=== PATIENT | female | born 1995 | race Caucasian/White ===

== ENCOUNTER 2020-03-01 10:03 | Emergency (ER) | payer OTHER, SELFPAY ==
[2020-03-01 10:15] VITALS: BP 124/74; PULSE 71; RESP 20; TEMP 37.1; O2SAT 100
--- NOTE | 2020-03-01 10:15 | ED.GENADULT ---
HPI - General Adult General Chief complaint: Wound/Laceration Stated complaint: ingrown toe nail Time Seen by Provider: 03/01/20 10:16 Source: patient and RN notes reviewed Mode of arrival: ambulatory Limitations: no limitations History of Present Illness HPI narrative: This is a 24 years old female presents to the office for an evaluation of ingrowing toenails pain for over a week. Pain is worse when she walks on it. She has tried epsom salt socking and tea tree oil for her symptoms with minimal changes. She noticed last night that there was pustular discharge from her right great toe. Denies injury/trauma. She is here visiting family and will stay for another two week before she returns to [facility]. Related Data Home Medications Medication Instructions Recorded Confirmed No Home Medications 03/01/20 03/01/20 Allergies Allergy/AdvReac Type Severity Reaction Status Date / Time No Known Allergies Allergy Verified 03/01/20 10:16 Review of Systems Review of Systems: Narrative: CONSTITUTIONAL: Denies fever, chills CARDIOVASCULAR: Denies chest pain, palpitation RESPIRATORY: Denies dyspnea, wheezing, cough GASTROINTESTINAL: Denies abdominal pain, nausea, vomiting, diarrhea. SKIN: Denies rash MUSCULOSKELETAL: Reports bilateral great toes pain. NEUROLOGIC: Denies lightheaded All other systems reviewed are negative, except as documented in HPI. PMFSH Social History Social History Gender identity (if verbalized by the patient): Female Comments At time of signature, I agree with nursing past medical, surgical, social and family history. There is no relevant family history pertinent to the presenting complaint. Exam Narrative: Exam Narrative: GENERAL: This is a well-nourished, well-developed patient, in no apparent distress. CARDIOVASCULAR: Regular rate and rhythm without murmurs, gallops, or rubs. RESPIRATORY: Clear to auscultation. Breath sounds equal bilaterally. No wheezes, rales, or rhonchi. GASTROINTESTINAL: Abdomen soft, non-tender, nondistended. Bowel sounds are active. No hepato-splenomegaly, or palpable masses. No guarding. SKIN: left great toe noted slight erythema and edematous on tibia aspect of nailfold, right great toe noted tender, edematous and erythema fibular aspect of nailfold. No obvious pus pocket; so no incision is needed. NEURO: awake, alert, and oriented to person, place and time. There were no obvious focal neurologic abnormalities. Steady gait EXTREMITIES: Normal range of motion. Amelia Coma Scale Eye Opening: Spontaneous 4 Amelia Coma Scale Motor: Obeys Commands 6 [place] Coma Scale Verbal: Oriented 5 Course Vital Signs Vital signs: Vital Signs Temperature 98.7 F 03/01/20 10:15 Pulse Rate 71 03/01/20 10:15 Respiratory Rate 03/01/20 10:15 Blood Pressure 124/74 03/01/20 10:15 Pulse Oximetry 100 03/01/20 10:15 Temperature 98.7 F 03/01/20 10:15 Pulse Rate 71 03/01/20 10:15 Respiratory Rate 03/01/20 10:15 Blood Pressure 124/74 03/01/20 10:15 Pulse Oximetry 100 03/01/20 10:15 Medical Decision Making MDM Narrative Medical decision making narrative: Discharge instructions reviewed with patient, as well as provided in writing per nursing staff. The instructions also include specific and strict return/GO TO THE ER as well as f/u information. All questions have been answered, and the patient deny any further questions with discharge and discharge plan. Differential Diagnosis Differential Diagnosis: insect bite, paronychia, cellulitis, tinea Vital Signs Vital Signs: Vital Signs Temperature 98.7 F 03/01/20 10:15 Pulse Rate 03/01/20 10:15 Respiratory Rate 03/01/20 10:15 Blood Pressure 124/74 03/01/20 10:15 Pulse Oximetry 100 03/01/20 10:15 Temperature 98.7 F 03/01/20 10:15 Pulse Rate 03/01/20 10:15 Respiratory Rate 03/01/20 10:15 Blood Pre
== END 2020-03-01 10:33 | disposition home or self-care (01) ==
PROVIDERS: Emergency Provider Nurse Practitioner
DX: L03.032 Cellulitis of left toe (principal); L60.0 Ingrowing nail
CPT/HCPCS: 99203; G0463

== ENCOUNTER → 2022-11-18 08:37 | Outpatient (CLI) | payer BC, SELFPAY ==
--- NOTE | ~2022-11-18 | US_ITS ---
EXAMINATION: US OB /maternal detail DATE: 11/18/2022 09:24 INDICATION: Encounter for screening, unspecified. TECHNIQUE: Real-time ultrasound of the pelvis was performed. COMPARISON: None. FINDINGS: There is a single living fetus in breech presentation. The placenta is anterior, 5.2 cm from the cer vix. heart rate is 145 beats per minute (bpm). The amniotic fluid volume is subjectively normal . The cervical length is 3.6 cm on transabdominal images, which is normal. The following biometric data were obtained: Biparietal diameter (BPD): 4.8 cm; head circumference (HC): 17.6 cm; abdominal circumference (AC): 14 .7 cm; femur length (FL): 3.1 cm. These measurements are concordant. Estimated weight is 317 g +/- 48 g, which correlates with the 37th percentile when 04/07/23 is u sed as estimated date of delivery. As single measurements, these parameters are each equal to the following estimated gestational ages: BPD: 20 weeks 3 days. HC: 20 weeks 1 days. AC: 20 weeks 0 days. FL: 19 weeks 4 days. estimated gestational age based solely on measurements from this exam is 20 weeks 0 days +/- 1 weeks 3 days. The cerebral ventricles, cerebellum, cisterna magna, nuchal fold, and visualized portions of the spin e are normal. The heart is normal. The diaphragm, stomach, kidneys, and bladder are normal. There are two umbilical arteries to yield a 3-vessel cord. The cord insertion is normal. IMPRESSION: 1. Single living fetus in breech presentation. 2. Estimated weight is 317 g +/- 48 g, which correlates with the 37th percentile when 04/07/23 is used as estimated date of delivery. 3. Normal anatomic survey. Reviewed, dictated and finalized at location A. IMPRESSION: 1. Single living fetus in breech presentation. 2. Estimated weight is 317 g +/- 48 g, which correlates with the 37th pe rcentile when 04/07/23 is used as estimated date of delivery. 3. Normal anatomic survey.
== END ==
PROVIDERS: PCP Obstetrics & Gynecology Gynecologic Oncology; Visit Provider Obstetrics & Gynecology Gynecologic Oncology
DX: Z34.92 Encounter for supervision of normal pregnancy, unspecified, second trimester (principal); Z3A.20 20 weeks gestation of pregnancy
CPT/HCPCS: 76805

== ENCOUNTER 2025-05-11 07:27 | Outpatient (CLI) | payer BC, SELFPAY ==
--- OUTSIDE RECORDS SUMMARY | 2025-05-11 07:34 | XMS_ITS | Encounter Summary ---
Author Organization [facility] Address [address] [place] [id number] Care Team Providers Care Rail Detector Car Operator Name Role Phone Srinivasa Iliana Ye [facility] Primary Care Provider Toshia Vega [facility] Primary Care Provid er Encounter Details Date Type Department Care Team (Late st Contact Info) Description 08/30/[address] [facility] [address] [place] [phone] Parisa Louis, [facility] [address] [facility], [address] [place] [address] Question regarding URINALYSIS Social History Tobacco Use Types Packs/Day Years Used Date Smoking Tobacco: Never Smokeless Tobacco: Never Alcohol Use Standard Drinks/Week Comments Yes 0 (1 standard drink = 0.6 oz pur e alcohol) ocassionally PHQ-2 Answer Date Recorded Patient Health Questionnaire-2 Score 0 08/14/2022 Comments No Sex and Gender Information Value Date Recorded Sex Assigned at Not on file Legal Sex Female 3:29 PM CDT Gender Identity Not on file Sexual Orientation Not on file COVID-19 Exposure Response Date Recorded In the last 10 days, have yo u been in contact with someone who was confirmed or suspected to have Coronavirus/COVID-19? No / Unsure 08/30/2022 9:18 AM INSURANCE UNDERWRITING ASSISTANT documented as of this encounter Plan of Treatment Not on file documented as of this encounter Visit Diagnoses Not on filedocumented in this encounter Additional Health Concerns Infection Onset Date Last Indicated Resolved Time COVID-19 Rule Out 11/07/2023 11/07/2023 11/07/2023 10:21 AM CDT Assessment Noted Time PHQ-9 Depression Total Score: 0 10/04/19 3:20 PM CDT documented as of this encounter Care Teams Rail Detector Car Operator Relationship Specialty Start Date End Date Iliana Bernabe, CRUCIBLE FURNACE TENDER- PCP - General Nurse Practitioner Family 06/21/22 3 Toshia Akers, [facility]- [address] [place] [address] PCP - General Nurse Practitioner Family 02/02/23 documented as of this encounter
--- OUTSIDE RECORDS SUMMARY | 2025-05-11 07:34 | XMS_ITS | Encounter Summary ---
Author Organization [facility] Address [address] [place] [address] Care Team Providers Care Folding Machine Operator Name Role Phone Iliana Bernabe PARANORMAL INVESTIGATOR- Primary Care Provider Toshia Vega PARANORMAL INVESTIGATOR-BC Primary Care Provid er Encounter Details Date Type Department Care Team (Latest Contact Info) Description 08/14/2022 Troppin Message [address] [phone] Iliana Bernabe, PARANORMAL INVESTIGATOR-BC Question regarding CHORIONIC GONADOTROPIN HCG SERUM Social History Tobacco Use Types Packs/Day Years [...] suspected to have Coronavirus/COVID-19? No / Unsure 08/14/2022 7:08 AM ANATOMY TEACHER documented as of this encounter Functional Status * Over the past 2 weeks, how often have you been bothered by any of the following problems? Question Answer Date of Assessment Author Status Little interest or pleasure in doing things Not at all 08/14/2022 10:49 AM ANATOMY TEACHER Mensing, Fadia Bradley RN Act jude Feeling down, depressed, or hopeless Not at all 08/14/2022 10:49 AM ANATOMY TEACHER Fadia Myers RN Active Patient Health Questionnaire-2 Score 0 08/14/2022 10:49 AM ANATOMY TEACHER Fadia Myers RN Active documented as of this encounter Plan of Treatment Not on file documented as of this encounter Visit Diagnoses Not on filedocumented in this encounter Additional Health Concerns Infection Onset Date Last Indicated Resolved Time COVID-19 Rule Out 11/07/2023 11/07/2023 11/07/2023 10:21 AM CDT Assessment Noted Time PHQ-9 Depression Total Score: 0 10/04/19 3:20 PM CDT documented as of this encounter Care Teams Folding Machine Operator Relationship Specialty Start Date End Date Iliana Bernabe PARANORMAL INVESTIGATOR- PCP - General Nurse Practitioner Family 06/21/22 3 Toshia Akers PARANORMAL INVESTIGATOR- [address] [place] [address] PCP - General Nurse Practitioner Family 02/02/23 documented as of this encounter
--- OUTSIDE RECORDS SUMMARY | 2025-05-11 07:34 | XMS_ITS | Clinical Summary ---
Author Organization [facility] Address [facility] [place] [address] Care Team Providers Care Workforce Development Assistant Name Role Phone Delphine Toshia [facility] Primary Care Provid er Allergies No known active allergies Medications vitamin (VINATE M) 27-1 MG Tab tablet Take 1 tablet by mouth daily. Active fluticasone propionate (FLONASE) 50 MCG/ACT nasal spray Active Magnesium Glycinate 100 MG Cap 01/13/2023 Active cetirizine (ZYRTEC) 5 MG tablet Take 1 tablet (5 mg total) by mouth daily. Active phentermine (ADIPEX-P) 37.5 MG capsule 12/26/2023 Active Active Problems Problem Noted Date Diagnosed Date Allergic rhinitis, unspecified 11/07/2023 Closed fracture of fourth metatarsal bone 2023 Overview (11/07/2023): HEALED BUCKLE FRACTURE Exercise-induced bronchospasm 11/07/2023 Perioral dermatitis 11/07/2023 Uses oral contraceptives 11/07/2023 Closed fracture of second metatarsal bone 2023 Overview (11/07/2023): HEALED BUCKLE FRACTURE Closed fracture of third metatarsal bone 024 Overview (11/07/2023): HEALED BUCKLE FRACTURE 04/02/2023 macrosomia affecting management of mother, antepartum 04/02/2023 Immunizations Immunization Administration Dates Next Due DTaP/Hib (TriHIbit) 10/13/1996 Dtp (Generic) 02/20/2001 Dtp/Hib (Tetramune) 1995,1995,1995 HPV4 (Gardasil) 05/31/2011,10/13/2010,06/29/2010 Hepatitis B Pediatric 1995,1995,12/0 07/1994 Influenza (Generic) 06/29/2010 Influenza Adult (Generic) 07/23/2019,08/03/2016 MMR (MMRII) 02/22/2001,10/13/1996 Polio IPV (Ipol) 02/22/2001 Polio Opv (Generic) 1995,1995,1995 Varicella (Varivax) 02/22/2001 Family History Medical History Relation Comments Cancer Father Cancer Maternal Grandmother Diabetes Mother Pre diabetic Thyroid Mother Heart Disease Paternal Grandfather Hypertension Paternal Grandfather Heart Disease Paternal Grandmother Relation Status Comments Father Maternal Grandmother Mother Paternal Grandfather Paternal Grandmother Social History Tobacco Use Types Packs/Day Years Used Date Smoking Tobacco: Never Passive Smoke Exposure: Never Smokeless Tobacco: Never Tobacco Cessation:Counseling Given: Yes Alcohol Use Standard Drinks/Week Comments Not Currently 0 (1 standard drink = 0.6 oz pur e alcohol) ocassionally PHQ-2 Answer Date Recorded Patient Health Questionnaire-2 Score 0 11/25/2024 Comments No Sex and Gender Information Value Date Recorded Sex Assigned at Not on file Legal Sex Female 3:29 PM CDT Gender Identity Not on file Sexual Orientation Not on file Last Filed Vital Signs Vital Sign Reading Time Taken Comments Blood Pressure 103/65 11/25/2024 2:52 PM CDT Pulse 83 11/25/2024 2:52 PM CDT Temperature 37.2 C (98.9 F) 11/25/2024 2:52 PM CDT Respiratory Rate 20 11/25/2024 2:52 PM CDT Oxygen Saturation 98% 11/25/2024 2:52 PM CDT Inhaled Oxygen Concentration - - Weight 75.3 kg (166 lb) 11/25/2024 2:52 PM CDT Height 158.8 cm (5' 2.5) 11/25/2024 2:52 PM CDT Body Mass Index 29.88 11/25/2024 2:52 PM CDT Plan of Treatment Health Maintenance Due Date Last Done Comments Cervical Cancer Screening Pap Smear (Age 21 to 29) Every 3 Years 1995 Cervical Cancer Screening 1995 Annual Physical 08/14/2023 08/14/2022 COVID-19 Vaccine ( season) 2025 02/19/2021, 07/16/2020 Influenza Adult (#1) 2025 07/16/2022, 07/23/2019, 08/03/2016, Additional history exists DTaP, Tdap and Td Vaccines (4 - Td or Tdap) 07/16/2032 07/16/2022, 02/20/2001, 10/13/1996, Additional history exists Hepatitis B Vaccines Completed 1995, 1995, 1995 HPV Vaccines Completed 05/31/2011, 09/15, 06/29/2010, Additional history exists PHQ-2 (Physician [place]) Completed 11/25/2024 Hepatitis C Completed 12/19/2024, 08/30/2022 Hepatitis A Vaccines Aged Out No long er eligible based on patient's age to complete this topic Meningococcal B Vaccine Aged Out No l onger eligible based on patient's age to complete this topic Meningococcal Vaccine Aged Out No rosa joy eligible based on patient's age to complete this topic Pneumococcal Vaccine: Pediatrics (0 to 5 Years) and At-Risk Patients (6 to 49 Years) Aged Out No longer eligible based on patient's age to complete this topic RSV Immunizations Under 20 Months Aged Out No longer eligible based on patient's age to complete this topic Procedures Procedure Name Priority Date/Time Associated Diagnosis Comments HEPATITIS C ANTIBODY Routine 12/19/2024 1:11 PM CDT Encounter for screening of mother ([facility]) from Last 3 Months or Most Recently Relevant to Health Maintenance Results * HEPATITIS C ANTIBODY (12/19/2024 1:11 PM CDT) HEPATITIS C AB NON-REACTI VE NON-REACTI VE 12/19/2024 9:21 PM CDT [facility] 12/19/2024 1:11 PM CDT Erlinda Herrmann MD LABORATORY Final Result [facility] [address] [place] [address], [place] [phone] from Last 3 Months or Most Recently Relevant to Health Maintenance Insurance [facility] Advance Directives * Full Code (Latest Code Status on File) Date Activated Date Inactivated Comments 04/02/2023 2:02 PM 04/05/2023 6:29 PM Care Teams Workforce Development Assistant Relationship Specialty Start Date End Date Toshia Akers FNP-AYESHA [address] [place] [address] PCP - General Nurse Practitioner Family 02/02/23
--- OUTSIDE RECORDS SUMMARY | 2025-05-11 07:34 | XMS_ITS | Data Portability ---
Author Organization [facility], [id number] [facility] Address [address] [place] [address] Assessment Encounter Date Assessment Date Assessment LastModified by Organization Details LastModified Time 09/08/2024 09/08/2024 - discussed routine well woman care [email or web address] Not available 09/06/2024 13:11:16 12/11/2024 12/11/2024 NOB's in 1-2w bgelly Not available 12/11/2024 14:13:38 Plan of Treatment Reminders Order Date Submit Date Provider Last Modified By Organization Details Last Modified Time Details Appointments None recorded. Lab CT + NG + TV, DNA, urine/swab 2024 025 [place] [facility] ([facility]), [address], [place], [address], 21:06:00 Referral None recorded. Procedures None recorded. Surgeries None recorded. Imaging None recorded. Medication Orders ondansetron 4 mg disintegrat ing tablet 2024 025 [facility] 435, [address], [address], 09:08:43 albuterol sulfate HFA 90 mcg/actuati on aerosol inhaler 2024 025 [facility] 435, [address], [address], 14:14:02 metoclopram inderjit 10 mg tablet 2024 025 [facility], [address] [facility] [address], [place], [address], 14:14:03 Patient TargetsNo targets recorded. Patient Instructions Encounter Date Encounter Id Patient Instructions Last Modified By Organization Details Last Modified Time 12/26/2024 [id number] non-invasive testing information bgelly Not available 12/26/2024 08:56:52 substance use an d : care instructions bgelly Not available 12/26/2024 08:56:52 Reason for Referral None Reported. Results Created Date Observation Date Name Description Value Unit Range Abnormal Flag Note LastModifiedBy Organization Detail LastModifiedTime 12/12/1912/12/2024 CHLAM YDIA, GONOR RHOEA E, AND TRICH OMONA S trichomonas vaginalis, aptima (panther) NOT DETECT ED normal DNA testi ng perfo rmed by [employer] valentin Ampli ficat ion (TMA) . Resul ts shoul d be inter prete d in conju nctio n with patie nt histo ry and clini broderick prese ntati on. This assay is highl y accur ate, but rare false posit jude and negat jude resul ts may occur . Posit jude resul ts in low preva lence popul ation s may requi re re-ev aluat ion. A negat jude resul t does not precl ude a possi ble infec tion due to a speci men inade quacy or sampl ing error . Test perfo rmed by [facility], [address], [place] [address] , Tiffany Rascon ra, DO, Labor atory [place], CLIA# [id number] Not Available [facility] ([facility]) [address], [place], [address], 12/14/2024 21:06:00 12/12/19 25 12/12/2024 CHLAM YDIA, GONOR RHOEA E, AND TRICH OMONA S neisseria gonorrhoeae, aptima NOT DETECT ED normal DNA testi ng perfo rmed by [employer] valentin Ampli ficat ion (TMA) . Resul ts shoul d be inter prete d in conju nctio n with patie nt histo ry and clini broderick prese ntati on. This assay is highl y accur ate, but rare false posit jude and negat jude resul ts may occur . Posit jude resul ts in low preva lence popul ation s may requi re re-ev aluat ion. A negat jude resul t does not precl ude a possi ble infec tion due to a speci men inade quacy or sampl ing error . Test perfo rmed by [employer] [employer] d/b/a [facility], [address], [place] [address] , Tiffany Rascon ra, DO, Labor atory [facility], IA# [id number] Not Available [facility] ([facility]) [address], [place], [address], 12/14/2024 21:06:00 12/12/19 25 12/12/2024 CHLAM YDIA, GONOR RHOEA E, AND TRICH OMONA S chlamydia trachomatis, aptima NOT DETECT ED normal DNA testi ng perfo rmed by [employer] valentin Ampli ficat ion (TMA) . Resul ts shoul d be inter prete d in conju nctio n with patie nt histo ry and clini broderick prese ntati on. This assay is highl y accur ate, but rare false posit jude and negat jude resul ts may occur . Posit jude resul ts in low preva lence popul ation s may requi re re-ev aluat ion. A negat jude resul t does not precl ude a possi ble infec tion due to a speci men inade quacy or sampl ing error . Test perfo rmed by [facility], [address], [place] [address] , Tiffany Rascon ra, DO, Labor atory [place], CLIA# [id number] Not Available [facility] ([facility]) [address], [place], [address], 12/14/2024 21:06:00 Result Notes None recorded. Problems Name Problem SNOMED Code Status Onset Date Resolution Date Notes Provider Name and Address Organization Details Recorded Time Asthma 307482854 Active 2024 Diana johnson, [place] - [facility] 5 13:13:26 Obesity 787421458 Active 2024 NALINI TORRES [address] [facility] [address], [place], [address], [facility] 5 16:09:40 97563352 Completed 202404/03/2025 Velia Lopez null, [place] - [facility] 5 16:00:26 Wheezing 57906755 Active 2024 SEE PARTIDA MD [address], [place], [address], [facility] 5 14:10:41 Nausea and vomiting in Active 2024 SEE PARTIDA MD [address] [facility] [address], [place], [address], [facility] 5 09:02:18 Low back pain 153778986 Active 2024 Ulises johnson, [place] - [facility] 5 08:55:57 Nausea and vomiting in Completed 2024 SEE PARTIDA MD [address], [place], [address], [facility] 5 09:02:18 Past history of section 037328333 Active 2024 10#13 planned CS 03/2023. TRINA bailey @NOB. SEE PARTIDA MD [address], [place], [address], [facility] 5 09:02:11 Past history of section 486083266 Completed 2024 10#13 planned CS 03/2023. TRINA bailey @NOB. SEE PARTIDA MD [address], [place], [address], [facility] 5 09:02:11 Problem Notes None recorded. Procedures Surgical History Date Name Laterality Status Provider Name and Address Organization Details Recorded Time 12/27/19 25 U/S OB [facility] ([facility]) completed SEE PARTIDA MD [address], [place], [address], [facility] 12/26/2024 09:05:17 12/12/19 25 U/S OB FIRST TRIMESTER ([facility]) completed SEE PARTIDA MD [address] [facility] [address], [place], [address], [facility] 12/11/2024 14:09:47 07/16/19 24 excision of lipoma completed Diana Power [facility] 09/08/2024 15:48:05 04/02/20 23 section completed Diana Power [facility] 09/06/2024 13:15:55 08/25/19 23 Date of Last Pap Smear completed Diana Power [facility] 09/06/2024 13:14:01 07/16/19 00 tonsillectomy completed Diana Power [facility] 09/06/2024 13:16:10 section completed Not Available [facility] 11/13/2024 14:29:31 tonsillectomy completed Not Available [facility] 11/13/2024 14:29:31 Caesarean Section completed Lorna Butler [facility] 12/11/2024 13:47:32 Imaging Results None recorded. Procedure Notes None recorded. Medical Equipment None Reported. Allergies Allergen ID Allergen Name Allergen Category Reaction Reaction Severity Criticality Documentation Date Start Date Code Code System Note Provider Name and Address Organization Details Recorded Time 135671 tree and shrub pollen environme nt,medica tion Not available Not available Not available 09/06/2024 Diana johnson [facility] 13:11:52 Medications Name Sig Start Date Stop Date Status Note LastModified by Organization Details LastModified Time doxycycline hyclate 100 mg capsule TAKE 1 CAPSULE BY MOUTH TWICE DAILY FOR 7 DAYS . TAKE WITH A FULL GLASS OF WATER AND FOOD. DO NOT LIE DOWN FOR 1 HOUR AFTER TAKING. 09/08 completed Not Available Not Available Not Available Claritin 10 mg tablet Take 1 tablet every day by oral route. active Not Available Not Available No t Available Pepcid 20 mg tablet Take 1 tablet twice a day by oral route. active Not Available Not Available No t Available albuterol sulfate HFA 90 mcg/actuati on aerosol inhaler INHALE 2 PUFFS BY MOUTH EVERY 4 HOURS NEEDED 01/20 completed Not Available Not Available Not Available ondansetron 4 mg disintegrat ing tablet DISSOLVE 2 TABLETS IN MOUTH TWICE DAILY active Not Available Not Available No t Available phentermine 37.5 mg capsule TAKE 1 CAPSULE BY MOUTH ONCE DAILY 09/08 completed Not Available Not Available Not Available metoclopram inderjit 10 mg tablet TAKE 1 TABLET BY MOUTH 4 TIMES DAILY NEEDED 01/20 completed Not Available Not Available Not Available amoxicillin 875 mg-potassiu m clavulanate 125 mg tablet TAKE 1 TABLET BY MOUTH TWICE DAILY FOR 10 DAYS 09/08 completed Not Available Not Available Not Available magnesium 01/20 completed Not Available Not Available Not Available Vitamin active Not Available Not Available Not Available Vitamin B6 01/20 completed Not Available Not Available Not Available Vitals Date Recorded Body height Body mass index (BMI) Body weight Systolic And Diastolic Provider Name and Address Organization Details Last Updated DateTime 09/08/2024 158.75 cm 30.6 kg/m2 40445.42 g 110/62 mm[Hg] Diana Power [facility] 09/08/2024 15:44:38 Date Recorded Body height Body mass index (BMI) Body weight Systolic And Diastolic Provider Name and Address Organization Details Last Updated DateTime 12/11/2024 158.75 cm 29.7 kg/m2 32038.74 g 102/60 mm[Hg] Lorna Butler [facility] 12/11/2024 13:58:04 Date Recorded Body weight Body mass index (BMI) Body height Systolic And Diastolic Provider Name and Address Organization Details Last Updated DateTime 12/26/2024 48089.741 05 g 29.7 kg/m2 158.75 cm 122/60 mm[Hg] Ulises Alisson [facility] 12/26/2024 08:54:03 Date Recorded Body height Body mass index (BMI) Body weight Systolic And Diastolic Provider Name and Address Organization Details Last Updated DateTime 01/23/2025 158.75 cm 30.4 kg/m2 64230.11 g 106/66 mm[Hg] Yvonne Camarillo [facility] 01/23/2025 16:34:47 Social History Question Answer Notes LastModified by Organizat ion Details LastModified Time Tobacco Smoking Status Never Smoker Diana Power [facility] 09/08/2024 15:44:58 Do You Have An Advance Directive? No Information not available 09/08/2024 If You Are , What Was Your Level Of Alcohol Consumption Prior To ? Occasional Information not available 09/08/2024 How Many Years Have You Consumed Alcohol? 9 [email or web address] Information not available 12/11/2024 What Is Your Level Of Caffeine Consumption? Moderate [email or web address] Information not available 01/23/2025 What Type Of Diet Are You Following? REGULAR Information not available 09/08/2024 What Is Your Relationship Status? Information not available 09/08/2024 Sex: Unknown Functional Status Question Answer Note LastModified by Organizat ion Details LastModified Time Do you use any illicit or recreational drugs? No Information not available 11/13/2024 What is your level of alcohol consumption? None [email or web address] Information not available 01/23/2025 Are you currently employed? 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 Moderate Note: - [employer]rees[employer] 01/31/2022 SocialHistoryQ uestion: 'Moderate Amount of Exercise (1-3 times weekly)'; Information not available 11/13/2024 Mental Status None recorded. Family History Relationship Description Onset Age of this Age Resolved Age Notes LastModified by Organization Details LastModified Time Mother Asthma bvoellinger Not availabl e 09/08/2024 15:44:57 Mother Hypothyroidi sm bvoellinger Not available 08/17 15:44:57 Mother High risk bvoellinger Not available 08/17 15:44:57 Mother Seizure disorder Seizur e Disord er [email or web address] Not available 01/23/2025 16:26:51 Mother History taken NOS Other Mother - PCOS [email or web address] Not available 01/23/2025 16:26:51 Father Heart disease bvoellinger Not available 08/17 15:44:57 Father Mixed hypercholest erolemia and hypertriglyc eridemia Elevat ed Choles terol/ Trigly ceride s - Phrees ia 2021 [email or web address] Not available 01/23/2025 16:26:51 Paternal Grandfather Mixed hypercholest erolemia and hypertriglyc eridemia Elevat ed Choles terol/ Trigly ceride s - Phrees ia 2021 [email or web address] Not available 01/23/2025 16:26:51 Unspecified Relation Family history taken Family Medica l Histor y Review ed [email or web address] Not available 01/23/2025 16:26:51 Maternal Grandmother Malignant neoplastic disease Cancer MGM-ly mphoma , Mother - pituit shasta tumor Not available 11/13/2024 15:24:57 Mother Malignant neoplastic disease Cancer MGM-ly mphoma , Mother - pituit shasta tumor Not available 11/13/2024 15:24:57 Mother Hypertensive disorder High Blood Pressu re Not available 11/13/2024 15:24:57 Father Hypertensive disorder High Blood Pressu re Not available 11/13/2024 15:24:57 Paternal Grandfather Hypertensive disorder High Blood Pressu re Not available 11/13/2024 15:24:57 Maternal Grandfather Heart disease Heart Diseas e Not available 11/13/2024 15:24:57 Medical History Condition Response ID-Other Y Cancer- Genetic screening Pulmonary- Asthma Y Gynecological History Statement/Question Response History of Fibroids N Flow Heavy Date of LMP 10/17/2024 Current Control Method: Withdrawal History of Recurrent Ovarian Cysts N HPV Vaccine Completed Date of Last HPV Test 08/25/2022 13 History of PCOS N History of Infertility Y History of Vulvar Dysplasia N History of Cervical Dysplasia N Duration of Flow (days) 5 Age at Menarche 13 Current Control Method History of Endometriosis N Frequency of Cycle (Q days) 30 Sexually Active? Y History of Dysmenorrhea N Menses Monthly N Date of Last Pap Smear 08/25/2022 Sexual Problems? N History of Sexually Transmitted Infectio n N Obstetrics History GPAL:G 2 P 1 0 0 1 Type Value Full Term 1 Living 1 Total 2 Immunizations Vaccine Type Date Status Note Provider Nam e and Address Organization Details Recorded Time SARS-COV-2 (COVID-19) vaccine, UNSPECIFIED 07/16/2020 completed Diana johnson, [place] - [facility] 09/06/2024 13:12:13 influenza, unspecified formulation 07/16/2022 completed Diana john[place], [place] [facility] 09/06/2024 13:12:31 Tdap 07/16/2022 completed Diana john[place] [facility] 09/06/2024 13:12:43 HPV, unspecified formulation 07/16/2004 completed Diana johnson [place] - [facility] 09/06/2024 13:13:14 Past Encounters Encounter ID Performer Location Encounter Start Date Encounter Closed Date Diagnosis/Indication Diagnosis SNOMED-CT Code Diagnosis ICD10 Code Diagnosis IMO Codes Diagnosis Note [id number] NALINI DAVID MELISSA [id number] [address] [place] [address] 09/08/2024 15:33:47 09/08/2024 16:10:35 Gynecologic examination 83337834 Z01.419 -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 Depression screening 171 366984 Z13.31 -score 1 Obesity 744838819 E66.9 [id number] SEE PARTIDA MD [id number] [address] [place] [address] 12/11/2024 13:46:39 12/11/2024 14:20:42 screening 335422600 Z36.9 Nausea and vomiting in 6963278028 O21.9 [id number] [facility] 40831399 R06.2 71142 [id number] SEE PARTIDA MD [id number] [address] [place] [address] 12/26/2024 08:43:04 12/26/2024 09:09:34 Amenorrhea 21351581 N91.0 Depression screening 171 137913 Z13.31 Finding of 290 731847 Z39.1 827611 Low back pain 152959146 M54.59 [id number] Past pregn myah history of section 383972639 Z98.818 [id number] TOLAC ho provided Nausea and vomiting in 5102933842 O21.9 127040 [id number] BARBARA BONILLAROBERT DEVI DO [id number] [address] [place] [address] 01/23/2025 16:26:50 01/23/2025 17:29:30 Past history of section 835426833 Z98.953 3943740 care status 24 0437288 Z34.81 [id number] Health Concerns Section Related Observation LastModified by Organization Detai ls LastModified Time None Recorded Concern Status LastModified by Organization Details LastModified Time None Recorded Advance Directives Directive N: Payers Insurance Date Sequence Insurance Name Policy Number Policy Sullivan Covered Member ID Sullivan Member ID Guarantor Name 02/14/2025 1 [place] [id number] Vidya Weston [id number] Vidya Weston Notes Date Note Type Note Provider Name and Address Organization Details Recorded Time 09/08/2024 text/html Patient presents for ANNUAL EXAM This is an established patient Interval history/concerns/is sues: none Menstrual - Concerns: no - Timing: regular - Duration: 5 days - Flow: heavy - Cramps: none - Other: Sexual - Active: yes, male - Current number of partners: 1 - Number of parters in the past year: - Desires STI testing no Contraception - Method: withdrawal - Concerns: none Discharge: no Pelvic pain: no Other: does not want anything for contraceptive at this time-states it caused her to have trouble getting in the past and would like to have another child in the future. -ewa TORRES [address], [place], [address], [facility] 09/08/2024 16:10:28 12/11/2024 text/html Patient is here for debilitating nausea, and being light headed. Patient also states she is getting feelings like it is hard to breathe and having a heavy chest, patient states she is not getting any sleep at night. exercise induced asthma in HS and used inhaler. symptom similar, but was w exertion in HS and now is at rest. discussed allergens in air. no bleeding or pain. fatigue. 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 Menstrual cycles are regular and occur approximately every 30 days, with LMP of 10/17/2024. Based on LMP estimated gestational age is wks and days. Ultrasound performed today. Ultrasound if performed, showed estimated gestational age of wks and days. Final EDC determined to by based on . OB history is significant for the following swelling PMH: Hypertension: no Gestational diabetes: no Diabetes: no Rheumatologic disorder (e.g. Lupus): no Neurologic disorder: no Thyroid disease: no Infertility: no DVT/PE/APS: no She has been taking the following medications since her LMP: vitamin B6, PNV. She has not be exposed to any toxins, chemicals or radiation since her LMP. She did not require fertility treatment Since her LMP she has had the following symptoms including nausea, vomiting, headaches Infection History: Patient or partner has history of genital herpes No History of STD (GC, CT, HPV, syphilis, HIV) No History of LEEP, cervical conization, cervical laser ablation or cervical cryosurgery No Lives with someone with TB or TB exposed No Rash or viral illness since LMP No Have you received the flu vaccine this year no Have you received the COVID vaccine/booster this year no Other History There are not cats in the home. She has childhood varicella disease or chicken pox vaccine in the past. Have you ever received a blood transfusion No Will you approve a blood transfusion in case of an emergency yes [place] Screening Tool Do you feel unsafe in your relationship with your partner of with anyone in your environment? No Have you ever had difficulties in your life due to alcohol or drugs including prescription drugs? No Does your partner, your friends or anyone else close to you have any problems with alcohol or drug use? No Do either of your parents have a history of any problems with alcohol or drug use?No Since your LMP have your used alcohol or drugs? No Since your LMP have you smoked cigarettes, used tobacco products or vaped? No (If the patient answers YES to any of the above questions, additional screening and/or counseling might be appropriate) SEE PARTIDA MD [address], [place], [address], [facility] 12/26/2024 09:08:42 OBGyn Episode Ob Episode Information Episode Created Date Number of Fetuses Patient Bloodtype Patient rh Status Prepregnancy Weight lbs Domestic Partner Domestic Partner Phone Father Name Analog Design Engineer Status 12/12/19 25 1 CLOSED Fetus Data First Name Last Name Admitted to NICU Weight (g) Sex Living Outcome Pediatric Complications Fetus ID Race Codes Race Delivery Type [id number] Problems Problem Notes Problem Name Start Date End Date Resolution Snomed Code Not e Past history of section 12/26/[address] 10#13 [address] anned CS 03/2023. TOLAC ho @NOB. Nausea and vomiting in 12/26/2024 7264400730 Baldo Calculation Initial Baldo Date Initial Exam Date Initial Exam Provider Initial Ultrasound Date Last Menstrual Period Date Ultra Sound Weeks Gestation 08/01/2025 12/11/2024 12/11/2024 10/17/2024 6 Eighteen To Twenty Week Baldo Update Ultra Sound Date Fundal Height At Umbil Quickening Date Ultra Sound Latest Weeks Gestation Final Baldo Confirmed By Final Baldo Confirmed Date Final Baldo Date Ultra Sound Latest Days Gestation 0 0 Pre-mervat Flowsheet Flowsheet Date 12/11/2024 Alejandro Score Blood Edema Fundus Height Fundus Units Glucose Ketones Leukocytes Nitrite Labor Signs Protein Cervic Dilation Cervic Effacement Cervic Station none neg Type Weight in lbs Pre/Post Dialysis Refused Weight 165.525020324726 BP Diastolic BP Location Tested BP Systolic BP Type 60 102 Fetus Heart Rate Present Fetus Movement Comments pt is here for NOB problem v isit-CJ Flowsheet Date 12/26/2024 Alejandro Score Blood Edema Fundus Height Fundus Units Glucose Ketones Leukocytes Nitrite Labor Signs Protein Cervic Dilation Cervic Effacement Cervic Station none none none neg Type Weight in lbs Pre/Post Dialysis Refused 165.998765128656 BP Diastolic BP Location Tested BP Systolic BP Type 60 122 Fetus Heart Rate Present Fetus Movement A No Comments hx/rx rv;d nob visit see md note pt did labs last sunday already mw Flowsheet Date 01/23/2025 Alejandro Score Blood Edema Fundus Height Fundus Units Glucose Ketones Leukocytes Nitrite Labor Signs Protein Cervic Dilation Cervic Effacement Cervic Station none none neg Type Weight in lbs Pre/Post Dialysis Refused Weight 169.257188993183 BP Diastolic BP Location Tested BP Systolic BP Type 66 106 Fetus Heart Rate Present A Present Fetus Movement A No Comments RX/HX verified. BA No concer ns. Nausea is improving. Baby active on US. Appropriate interval growth. Menstrual History Last Menstrual Date Menses Monthly On Bcp Conception Prior Menses Frequency Hcg Plus Date Menarche Onset Age 0410/17/2024 Genetic Screening And Infection History Question Response Note Congenital Heart Defect false Miguel A Disease false Muscular Dystrophy false If Yes, Agent(s) And Strength/Dosage false Live With Someone With TB Or Exposed To TB false Sickle Cell Disease Or Trait () false Patient Or Partner Has Histo ry Of Genital Herpes false Rash Or Viral Illness Since Last Menstrual Period false Neural Tube Defect (Meningom yelocele, Spina Bifida, Or Anencephaly) false Óscar-Sachs (eg, Presybeterian, Cajun , Rwandan-Garvin) false Hemophilia Or Other Blood Disorders false History of HIV false History of Hepatitis false Any Other Genetic History false Thalassemia (Martiniquais, Sao Tomean, Mediterranean, Or Background): MCV < 80 false Down Syndrome false Cystic Fibrosis false History Of STD, Gonorrhea, C hlamydia, HPV, Syphilis false [place]'s Chorea false Mental Retardation/Autism true Cousin on FOB side w/mental retardation Intellectual Disability/Autism false If Yes, Was Person Tested For Fragile X? false Maternal Metabolic Disorder (eg, Type 1 Diabetes, PKU) false Hemoglobinopathy Or Carrier false Other Structural Defect false Recent Travel History Outside of Country false Patient's Age Will Be 35 Yea rs Or Older At Estimated Date of Delivery false Patient Or Baby's Father Had A Child With Defects Not Listed Above false Recurrent Loss, Or A Stillbirth false Other Infection History false Prior GBS-infected child false Other Inherited Genetic Or C hromosomal Disorder false Medications (including Suppl ements, Vitamins, Herbs, OTC Drugs), Illicit/Recreational Drugs, Alcohol false Delivery Information Delivery Date Delivery Type Labor Anesthesia Weeks Gestation Incision Type Labor Labor Length Hrs Delivered By Post Complications Tubal Sterilization Discharge Date Comments Discharge Information Feeding Method Contraceptive Method Maternal HG B and HCT Levels Ob Episode Information Episode Created Date Number of Fetuses Patient Bloodtype Patient rh Status Prepregnancy Weight lbs Domestic Partner Domestic Partner Phone Father Name Analog Design Engineer Status 09/06/19 25 1 CLOSED Fetus Data First Name Last Name Admitted to NICU Weight (g) Sex Living Outcome Pediatric Complications Fetus ID Race Codes Race Delivery Type [id number] Full Term [id number] Primary Baldo Calculation Initial Baldo Date Initial Exam Date Initial Exam Provider Initial Ultrasound Date Last Menstrual Period Date Ultra Sound Weeks Gestation 0 Eighteen To Twenty Week Baldo Update Ultra Sound Date Fundal Height At Umbil Quickening Date Ultra Sound Latest Weeks Gestation Final Baldo Confirmed By Final Baldo Confirmed Date Final Baldo Date Ultra Sound Latest Days Gestation 0 0 Menstrual History Last Menstrual Date Menses Monthly On Bcp Conception Prior Menses Frequency Hcg Plus Date Menarche Onset Age Delivery Information Delivery Date Delivery Type Labor Anesthesia Weeks Gestation Incision Type Labor Labor Length Hrs Delivered By Post Complications Tubal Sterilization Discharge Date Comments 3 Regional- idural 39 false RLA Discharge Information Feeding Method Contraceptive Method Maternal HG B and HCT Levels
--- OUTSIDE RECORDS SUMMARY | 2025-05-11 07:34 | XMS_ITS | Clinical Summary ---
Author Organization [facility] Address [address] [place] [address] Care Team Providers Care Laborer Tin Can Name Role Phone Unavailable Primary Care Provider Unavailabl e Source Comments [facility],non-owned Affiliates and Associated Physician Practices is amultiple site organization consisting of ambulatory clinics and hospital sitesin [place], [place], [place] and [place]. This disclosure is being madepursuant to the Care Everywhere program and may not contain all information available regarding this patient. Last updated 18.[facility] Allergies No known active allergies Encounters Date Type Department Care Team Description 04/10/2025 12:58 PM CDT - 04/10/2025 11:59 PM CDT Hospital Encounter [facility] [address] [place] [id number] Matilde Machado MD ADOPTION SERVICES MANAGER Discharge Disposition: Home or Self Care 03/13/2025 12:49 PM CDT - 03/13/2025 11:59 PM CDT Hospital Encounter [facility] [address] [place] [id number] Robb Delaney DO ADOPTION SERVICES MANAGER Discharge Disposition: Home or Self Care from Last 3 Months Social History Tobacco Use Types Packs/Day Years Used Date Smoking Tobacco: Never Assessed Estimated Date of Delivery Comme nts Yes 08/01/2025 Based on Ultraso und Sex and Gender Information Value Date Recorded Sex Assigned at Not on file Legal Sex Female 8:07 AM CDT Gender Identity Not on file Sexual Orientation Not on file Plan of Treatment Health Maintenance Due Date Last Done Comments HIV SCREENING 2010 DTAP/TDAP/TD VACCINES (1 - Tdap) 2014 HEPATITIS B VACCINE (1 of 3 - 19+ 3-dose series) 2014 PAP SMEAR 2016 HPV VACCINE (1 - 3-dose SCDM series) 2022 DEPRESSION SCREENING 07/16/2024 COVID-19 VACCINE (2 - 2024- season) 2025 02/19/2021 INFLUENZA VACCINE (#1) 2025 3, 07/23/2019, 08/03/2016, Additional history exists OB-ONE HOUR GLUCOSE 04/25/2025 OB-TDAP CURRENT 05/02/2025 OB-RHOGAM INJECTION 05/09/2025 Respiratory Syncytial Virus (RSV) Vaccine Pt: or over 60 yrs (1 - Risk 1-dose series) 06/06/2025 ZOSTER VACCINE (1 of 2) 2045 HEPATITIS C SCREENING Completed 12/19/2024 HIB VACCINE Aged Out No longer eligi ble based on patient's age to complete this topic MENINGOCOCCAL (Group B) VACCINE SHARED DECISION-MAKING Aged Out No longer eligible based on patient's age to complete this topic MENINGOCOCCAL GROUPS A/C/Y/W VACCINE Aged Out No longer eligible based on patient's age to complete this topic PNEUMOCOCCAL VACCINE Aged Out No long er eligible based on patient's age to complete this topic Procedures Procedure Name Priority Date/Time Associated Diagnosis Comments SONOGRAM - COMPLETE Routine 04/10/2025 1 :07 PM CDT Encounter for follow-up ultrasound of anatomy (HCC) 23 weeks gestation of (HCC) SONOGRAM - COMPLETE Routine 03/13/2025 1 2:50 PM CDT Encounter for anatomic survey (HCC) 19 weeks gestation of (HCC) from Last 3 Months Results * Sonogram - Complete (04/10/2025 1:07 PM CDT) Only the most recent of2 resultswithin the time period is included. Linked Results Indication ======== Incomplete anatomy Maternal obesity complicating , class 1 (BMI 30.0 - 34.9) History ====== OB History 2. Para 1 T1 1. live 2022. Gest. age 40 w + 0 d. Weight 4,904 g. Sex of child: male. Details: macrosomia, polyhydramnios, delivery Maternal Assessment Physical Exam Height 160 cm, 5 ft 3 in. Weight 85 kg, 187 lb. Initial weight 79 kg, 174 lb. BMI 33.13 kg/m . Initial BMI 30.82 kg/m . Weight gain 6 kg, 13 lb Method ====== Transabdominal ultrasound. View: Limited by position ========= López . Number of fetuses: 1 Dating ====== Date Details Gest. age CE Stated CE 23 w + 6 d 08/01/2025 Previous U/S 12/11/2024 GA, GA 6 w + 5 d 23 w + 6 d 08/01/2025 U/S 04/10/2025 based upon AC, BPD, Femur, HC 23 w + 5 d 08/02/2025 Assigned dating based on ultrasound (GA), selected on 03/13/2025 23 w + 6 d 08/01/2025 General Evaluation Cardiac activity present. FHR 142 bpm. Presentation: breech Placenta: Placental site: posterior Umbilical cord: Cord vessels: 3 vessel cord. Insertion site: normal insertion Amniotic fluid: Amount of AF: normal. MVP 7.1 cm Biometry BPD 56.1 mm 23w 1d 19% Hadlock HC 207.1 mm 22w 6d 6% Hadlock AC 194.2 mm 24w 1d 50% Hadlock Femur 44.0 mm 24w 3d 58% Hadlock Humerus 39.3 mm 24w 0d 43% Acosta HC / AC 1.07 Weight Calculation: EFW 657 g 51% Hadlock EFW (lb,oz) 1 lb 7 oz EFW by Hadlock (HGE-IS-UM-FL) appropriate Growth Overview Exam date GA BPD (mm) HC (mm) AC (mm) FL (mm) HL (mm) EFW (g) 03/13/2025 19w 6d 44.3 30% 167.8 24% 157.1 77% 32.1 48% 32.4 87% 346 71% 04/10/2025 23w 6d 56.1 19% 207.1 6% 194.2 50% 44 58% 39.3 43% 657 51% Anatomy The following structures appear normal: Abdomen Stomach. Kidneys. Bladder. Extremities / Skeleton Hands. The following structures were documented previously: Head / Neck Cranium. Lateral ventricles. Choroid plexus. Midline falx. Cavum septi pellucidi. Cerebellum. Cisterna magna. Thalami. Nuchal fold. Face Lips. Profile. Nose. Nasal bone. Orbits. Heart / Thorax 4-chamber view. RVOT view. LVOT view. 3-vessel view. 5-tlvzhe-fprjmbh view. Situs. Aortic arch view. Bicaval view. Ductal arch view. Great vessels. Right lung. Left lung. Diaphragm. Abdomen Cord insertion. Bowel. Genitals. Spine Cervical spine. Thoracic spine. Lumbar spine. Sacral spine. Extremities / Skeleton Arms. Legs. Feet. Impression ========= Single, live, intrauterine at 23w 6d. The size is appropriate. The amniotic fluid volume is normal. No major malformations were seen within the limitations of ultrasound. Comment ======== ultrasound alone cannot detect all structural, genetic, or functional , placental, or maternal abnormalities Follow-up ======== As clinically indicated. Coding ====== Diagnoses O99.212, E66.811: Obesity complicating , class 1 (BMI 30.0 - 34.9) Z36.3: Encounter for screening for malformations O99.212, E66.811: Obesity complicating , class 1 (BMI 30.0 - 34.9) Z36.2: Encounter for other screening follow-up Procedures 16868: US Preg Uterus Follow Up [place] PACS Anatomical Region Laterality Modality Other 04/10/2025 1:07 PM CDT us Sunil Hill MD [facility] ORDERABLES Edited Result - Final from Last 3 Months Insurance [facility]
[2025-05-11 09:39] LABS: Hematocrit 35.6 % (37.0-47.0); Hemoglobin 11.6 g/dL (12.0-15.0); Mean Corpuscular HGB Conc 32.6 g/dl (32-36); Mean Corpuscular Hemoglobin 28.3 pg (26-34); Mean Corpuscular Volume 86.8 fl (80-100); Platelet Count Result 284 k/mm3 (150-375); Red Blood Count 4.10 M/mm3 (4.2-5.4); White Blood Count 15.7 K/mm3 (4.5-10.0)
[2025-05-11 10:13] LABS: Glucose 1 Hour PP 50gm Dose 80 mg/dL
[2025-05-11 10:22] LABS: Syphilis IgG/IgM Antibody Non-Reactive (Nonreactive)
[2025-05-11 10:47] LABS: HIV 1/2 Ab P24 Ag Result Negative (Negative)
[2025-05-11] MEDS: RHO(D) IMMUNE GLOBULIN 300 MCG/2 ML SYRINGE IM (15:48)
== END 2025-05-11 07:28 | disposition home or self-care (01) ==
LOC: ANHLAB 07:29
PROVIDERS: Visit Provider Obstetrics & Gynecology
DX: Z34.92 Encounter for supervision of normal pregnancy, unspecified, second trimester (principal); Z3A.23 23 weeks gestation of pregnancy
CPT/HCPCS: 36415; 82947; 85027; 85461; 86593; 86703; 86850; 86900; 86901; 90384; 96372; G0432; J2790